=== PATIENT | male | born 1950 | race African-American/Black ===

== ENCOUNTER 2017-04-20 13:29 | Emergency (ER) | payer OTHER ==
[~2017-04-20] VITALS: Ht 182.9 cm; Wt 115.7 kg
[2017-04-20] MEDS ORDERED: SYNTHROID137 MCG ORAL (13:39)
[2017-04-20] MEDS ORDERED: Meclizine 25mg tab ORAL PRN (13:45)
--- NOTE | 2017-04-20 13:53 | Emergency Room Report ---
History of Present Illness General Chief Complaint: Dizziness Source: Patient Present Illness HPI The patient is a 66-year-old male presenting for feeling of dizziness. He states that yesterday, he felt that the room was spinning around him. This appeared to get worse with movement. The sensation then self resolved a few hours later. He denies any of these symptoms at this time. 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 He states that this has not changed. He denies other symptoms including nausea, vomiting, fever, chills, blurred vision , chest pain, shortness of breath Allergies: Coded Allergies: No Known Allergies (Unverified , 04/20/17) Patient History Past Medical History: see triage record Pertinent Family History: none Reviewed Nursing Documentation: PMH: Agreed, PSxH: Agreed Nursing Documentation-PMH Hx Hypertension: Yes Review of Systems All Other Systems: negative except mentioned in HPI Physical Exam Vital Signs Date Time Temp Pulse Resp B/P (MAP) Pulse Ox O2 Delivery O2 Flow Rate FiO2 04/20/17 13:34 98.2 81 19 149/94 97 Room Air Sp02 EP Interpretation: reviewed, normal General Appearance: no apparent distress, alert, GCS 15, non-toxic Head: normocephalic, atraumatic Eyes: bilateral eye PERRL, bilateral eye EOMI, bilateral eye other - bilat nystagmus ENT: hearing grossly normal, normal pharynx, no angioedema, normal voice, TMs + canals normal, uvula midline Neck: full range of motion, no bony tend, supple/symm/no masses Respiratory: chest non-tender, lungs clear, normal breath sounds, speaking full sentences Cardiovascular #1: regular rate, rhythm, no edema Genitourinary: normal inspection, no CVA tenderness Musculoskeletal: back normal, gait/station normal, normal range of motion, non- tender Neurologic: alert, oriented x3, responsive, sensory intact, speech normal, facial droop - R sided s/p Cardozo Palsy, other - R sided facial weakness Psychiatric: judgement/insight normal, memory normal, mood/affect normal, no suicidal/homicidal ideation Skin: normal color, no rash, warm/dry, well hydrated Lymphatic: no adenopathy Medical Decision Making PA Attestation Dr. Shelton is my supervising physician. Patient management was discussed with my supervising physician Diagnostic Impression: Primary Impression: Vertigo ER Course The patient is a 66-year-old male presenting for feeling of dizziness Differential diagnoses considered but not limited to: BPV, labyrinthitis, Mni re's disease, otitis media, CVA, ACS, among others Physical exam: Afebrile. No apparent distress Head is normocephalic atraumatic. There is right-sided facial droop and weakness. Unable to furrow brow on right side. Bilat nystagmus Labs: No leukocytosis. No anemia. CMP is unremarkable Urinalysis unremarkable UDS positive for marijuana only CTA of head shows Nonvisualization of the proximal right posterior inferior cerebellar artery, with visualization of distal branches. Differential possibilities include congenital agenesis, versus acquired occlusion The patient was placed for admission at this time. MRA ordered which shows no occlusion and no acute findings. After this result, admission was canceled and the patient will be discharged home. He states he has an appointment to see his primary doctor in the next 2 days. Is given a prescription for meclizine. He is given precautions to return to emergency department if symptoms return or any new symptoms presents. Laboratory Tests Test 04/20/17 14:16 04/20/17 15:08 White Blood Count 6.8 K/UL (4.8-10.8) Red Blood Count 4.50 M/UL (4.70-6.10) L Hemoglobin 16.0 G/DL (14.2-18.0) Hematocrit 47.2 % (42.0-52.0) Mean Corpuscular Volume 105 FL (80-99) H Mean Corpuscular Hemoglobin 35.6 PG (27.0-31.0) H Mean Corpuscular Hemoglobin Concent 33.9 G/DL (32.0-36.0) Red Cell Distribution Width 10.4 % (11.6-14.8) L Platelet Count 269 K/UL (150-450) Mean Platelet Volume 6.7 FL (6.5-10.1) Neutrophils (%) (Auto) 56.0 % (45.0-75.0) Lymphocytes (%) (Auto) 33.0 % (20.0-45.0) Monocytes (%) (Auto) 6.7 % (1.0-10.0) Eosinophils (%) (Auto) 3.4 % (0.0-3.0) H Basophils (%) (Auto) 1.0 % (0.0-2.0) Sodium Level 137 mEQ/L (135-145) Potassium Level 4.3 mEQ/L (3.4-4.9) Chloride Level 99 mEQ/L (98-107) Carbon Dioxide Level 26 mEQ/L (20-30) Anion Gap 12 (5-15) Blood Urea Nitrogen 12 mg/dL (7-23) Creatinine 1.2 mg/dL (0.7-1.2) Estimate Glomerular Filtration Rate > 60 mL/min (>60) Glucose Level 98 mg/dL (74-106) Calcium Level 9.1 mg/dL (8.6-10.2) Total Bilirubin 0.7 mg/dL (0.0-1.2) Aspartate Amino Transferase (AST) 22 U/L (5-40) Alanine Aminotransferase (ALT) 16 U/L (3-41) Alkaline Phosphatase 55 U/L (40-129) Creatine Kinase MB 1.6 ng/mL (< 6.7) Troponin I < 0.30 ng/mL (<=0.30) Total Protein 6.9 g/dL (6.6-8.7) Albumin 4.2 g/dL (3.5-5.2) Globulin 2.7 g/dL Albumin/Globulin Ratio 1.5 (1.0-2.7) Acetaminophen Level < 10 ug/mL (10-30) L Serum Alcohol < 10 mg/dL Urine Color Yellow Urine Appearance Clear Urine pH 8 (4.5-8.0) Urine Specific [place] 1.010 (1.005-1.035) Urine Protein Negative (NEGATIVE) Urine Glucose (UA) Negative (NEGATIVE) Urine Ketones Negative (NEGATIVE) Urine Occult Blood Negative (NEGATIVE) Urine Nitrite Negative (NEGATIVE) Urine Bilirubin Negative (NEGATIVE) Urine Urobilinogen 1 MG/DL (0.0-1.0) H Urine Leukocyte Esterase 1+ (NEGATIVE) H Urine RBC 0-2 /HPF (0 - 0) H Urine WBC 0-2 /HPF (0 - 0) Urine Squamous Epithelial Cells Few /LPF (NONE/OCC) Urine Bacteria Few /HPF (NONE) Urine Opiates Screen Negative (NEGATIVE) Urine Barbiturates Screen Negative (NEGATIVE) Phencyclidine (PCP) Screen Negative (NEGATIVE) Urine Amphetamines Screen Negative (NEGATIVE) Urine Benzodiazepines Screen Negative (NEGATIVE) Urine Cocaine Screen Negative (NEGATIVE) Urine Marijuana (THC) Screen Positive (NEGATIVE) H Lab Results Impression Unremarkable EKG Diagnostic Results EP Interpretation: NSR. No acute changes Rate: normal - 77 Rhythm: NSR ST Segments: no acute changes ASA given to the pt in ED: No PA Scribe Text EKG was reviewed and read with my supervising physician. No acute ST segment changes are seen. Normal rate and rhythm. No acute changes. CT/MRI/US Diagnostic Results CT/MRI/US Diagnostic Results #1: Imaging Test Ordered: CTA head Impression Nonvisualization of the proximal right posterior inferior cerebellar artery, with visualization of distal branches. Differential possibilities include congenital agenesis, versus acquired occlusion CT/MRI/US Diagnostic Results #2: Imaging Test Ordered: MRA Head Impression Unremarkable Last Vital Signs Date Time Temp Pulse Resp B/P (MAP) Pulse Ox O2 Delivery O2 Flow Rate FiO2 04/20/17 13:34 98.2 81 19 149/94 97 Room Air Status: improved Disposition: HOME, SELF-CARE Condition: Stable Scripts Meclizine Hcl* (VERTICALM*) 25 Mg Tablet 25 MG ORAL THREE TIMES A DAY, #30 TAB Prov: KEI FERNANDEZ 04/20/17 KEI FERNANDEZ Apr 20, 2017 13:53
[2017-04-20] MEDS ORDERED: LISINOPRIL20 MG ORAL (14:02)
[2017-04-20] MEDS ORDERED: SYNTHROID150 MCG ORAL (14:02)
[2017-04-20] MEDS ORDERED: Tubing IV Cassette IV ONE (14:05)
[2017-04-20 14:30] VITALS: BP 127/88
[2017-04-20 14:38] LABS: EOSINOPHILS % (AUTO) 3.4 % (0.0-3.0); MEAN CORPUSCULAR HEMOGLOBIN 35.6 PG (27.0-31.0); MEAN CORPUSCULAR HGB CONC 33.9 G/DL (32.0-36.0); MEAN CORPUSCULAR VOLUME 105 FL (80-99); MEAN PLATELET VOLUME 6.7 FL (6.5-10.1); MONOCYTES % (AUTO) 6.7 % (1.0-10.0); PLATELET COUNT 269 K/UL (150-450); RED CELL DISTRIBUTION WIDTH 10.4 % (11.6-14.8); WHITE BLOOD COUNT 6.8 K/UL (4.8-10.8)
[2017-04-20 14:40] LABS: TROPONIN I < 0.30 ng/mL (<=0.30)
[2017-04-20 15:00] LABS: ACETAMINOPHEN < 10 ug/mL (10-30); ALANINE AMINOTRANSFERASE 16 U/L (3-41); ALBUMIN/GLOBULIN RATIO 1.5 (1.0-2.7); ALCOHOL < 10 mg/dL; ANION GAP 12 (5-15); ASPARTATE AMINO TRANSFERASE 22 U/L (5-40); CALCIUM 9.1 mg/dL (8.6-10.2); CARBON DIOXIDE 26 mEQ/L (20-30); CHLORIDE 99 mEQ/L (98-107); CREATININE 1.2 mg/dL (0.7-1.2); GLOMERULAR FILTRATION RATE > 60 mL/min (>60); HEMOLYSIS 13; POTASSIUM 4.3 mEQ/L (3.4-4.9); SODIUM 137 mEQ/L (135-145); TOTAL PROTEIN 6.9 g/dL (6.6-8.7)
[2017-04-20 15:10] LABS: CKMB 1.6 ng/mL (< 6.7)
[2017-04-20 15:20] LABS: APPEARANCE,URINE CLEAR; KETONES,URINE NEGATIVE (NEGATIVE); LEUKOCYTE ESTERASE ,URINE 1+ (NEGATIVE); NITRITE,URINE NEGATIVE (NEGATIVE); PH,URINE 8 (4.5-8.0); PROTEIN,URINE NEGATIVE (NEGATIVE); UROBILINOGEN,URINE 1 MG/DL (0.0-1.0)
[2017-04-20 15:28] LABS: BACTERIA,URINE FEW /HPF; RBC,URINE 0-2 /HPF (0 - 0); SQUAMOUS EPITHELIAL CELL,UR FEW /LPF (NONE/OCC); WBC,URINE 0-2 /HPF (0 - 0)
--- NOTE | 2017-04-20 16:12 | Diagnostic Imaging Report ---
Indication: WEAK Technique: Precontrast acquisitions obtained through the brain. IV administration nonionic contrast. Arterial and delayed phase spiral acquisitions obtained through the brain Multiplanar and 3-D reconstructions were generated. Total dose length product 4041 mGycm. CTDIvol(s) 70, 16, 115, 54, 54 mGy. Radiation dose was minimized using automated exposure control Comparison: None Findings: Precontrast images demonstrate no evidence of acute hemorrhage or edema. There is mild age-related enlargement of ventricles and extra-axial CSF spaces. Normal flores-white differentiation. The calvarium is intact. The sinuses demonstrate minimal mucosal thickening of the ethmoid sinuses. The mastoids are clear. Angiographic images demonstrate patent codominant distal vertebral arteries. The distal right JOCELYN branches are patent and fill with, although proximal right PICA branches are not identified. The left PICA fills in the normal fashion. Patent basilar artery. Patent bilateral superior cerebellar arteries. Patent and nonstenotic bilateral P1 segments and proximal branches. Small but patent bilateral posterior communicating artery branches. There is slight dilatation of the origin of the left posterior communicating artery. This measures approximately 2.5 mm in diameter, is conical, and the posterior communicating artery originates off of the apex. Patent distal internal carotid arteries bilaterally. Patent bilateral A1 segments and proximal branches. There is probably a patent anterior communicating artery. Patent bilateral M1 segments and proximal branches. No vascular malformations are demonstrated. Unremarkable veins venous sinuses. No evidence of aneurysm other than the posterior communicating artery anomaly. Delayed phase images demonstrate no evidence of unusual contrast enhancement. Impression: Nonvisualization of the proximal right posterior inferior cerebellar artery, with visualization of distal branches. Differential possibilities include congenital agenesis, versus acquired occlusion No other findings to suggest intracranial cerebrovascular insufficiency demonstrated Mild dilatation of the left posterior commuting artery origin. Infundibular origin versus small aneurysm. The measured dimension (2.5 mm) is slightly greater than the upper limits of normal (2 mm) of an infundibular origin, but the other features are characteristic of infundibular origin [place] anatomy, as described Chronic and age-related changes, as described Negative for acute intracranial bleed, mass effect, or contrast enhancing lesion Minimal sinus disease Findings discussed by phone with Dr. Shelton in the emergency room at the time of interpretation The CT scanner at [facility] is accredited by the [employer] and the scans are performed using protocols designed to limit radiation exposure to as low as reasonably achievable to attain images of sufficient resolution adequate for diagnostic evaluation.
[2017-04-20 16:22] VITALS: BP 133/80
[2017-04-20] MEDS ORDERED: VERTICALM25 MG ORAL (18:06)
[2017-04-20 18:30] VITALS: BP 144/70
--- NOTE | 2017-04-21 11:09 | Diagnostic Imaging Report ---
Indication: Dizziness and weakness. Technique: 3-D [id number] of the brain Comparison: None Findings: No significant stenosis, vascular malformation, or aneurysm is identified. Flow-related enhancement of the major intracranial arteries demonstrated including the anterior, middle, and posterior cerebral arteries.Anterior communicating artery is demonstrated. Posterior communicating arteries are not seen on this examination although by CTA both posterior communicating arteries were demonstrated. The [id number] does not include a significant portion of the distal vertebral arteries. Cannot determine whether the posterior inferior cerebellar arteries are present are not. There are not visualized on this exam. Impression: Negative MRA of the brain Note: In general, CTA is a better examination than MRA with better resolution. Please refer to the CTA report for more information.
--- NOTE | 2017-04-21 17:58 | Cardiology Report ---
APPROVED REPORT EKG Measurement Heart [id number] Normal sinus rhythm Incomplete right bundle branch block Borderline ECG
== END 2017-04-20 18:30 | disposition home or self-care (01) ==
LOC: EMR 13:59
DX: R42 Dizziness and giddiness (principal); G51.0 Bell's palsy; I10 Essential (primary) hypertension; J32.9 Chronic sinusitis, unspecified
CPT/HCPCS: 36415; 70496; 70544; 80053; 80300; 81003; 82553; 84484; 85025; 93005; 99284; G0480; Q9967; 80329

== ENCOUNTER 2017-04-22 21:10 | Emergency (ER) | payer OTHER ==
[~2017-04-22] VITALS: Ht 182.9 cm; Wt 113.4 kg
[~2017-04-22 21:10] MED LIST: LISINOPRIL20 MG ORAL; SYNTHROID137 MCG ORAL; SYNTHROID150 MCG ORAL; VERTICALM25 MG ORAL
--- NOTE | 2017-04-22 21:29 | Emergency Room Report ---
History of Present Illness General Chief Complaint: To Be Triaged Source: Patient Present Illness HPI Patient presents with headache. It's left-sided. He was seen in April 20 similar complaints although it was described as vertigo at that time. An MRA and also a CTA of the brain were done. He was discharged with meclizine. The "headache" has persisted. He denies any fevers. He denies aura, NV, dysuria, pain in his temples, change in vision. He is worried and wants to make sure it is nothing serious. The patient is a history of Cardozo's palsy on the right-hand side 20 years ago. Risk factor = HTN which has been controlled. Here is the MRA: Findings: No significant stenosis, vascular malformation, or aneurysm is identified. Flow-related enhancement of the major intracranial arteries demonstrated including the anterior, middle, and posterior cerebral arteries.Anterior communicating artery is demonstrated. Posterior communicating arteries are not seen on this examination although by CTA both posterior communicating arteries were demonstrated. The himje-tb-htyc does not include a significant portion of the distal vertebral arteries. Cannot determine whether the posterior inferior cerebellar arteries are present are not. There are not visualized on this exam. Impression: Negative MRA of the brain Allergies: Coded Allergies: No Known Allergies (Unverified , 04/20/17) Patient History Past Medical History: see triage record Social History: Reports: smoking, drug use - thc Social History Narrative with girlfriend Reviewed Nursing Documentation: PMH: Agreed, PSxH: Agreed Nursing Documentation-PMH Hx Hypertension: Yes Review of Systems All Other Systems: negative except mentioned in HPI Physical Exam Vital Signs Date Time Temp Pulse Resp B/P (MAP) Pulse Ox O2 Delivery O2 Flow Rate FiO2 04/22/17 21:47 98.1 70 16 148/83 97 Room Air Sp02 EP Interpretation: reviewed, normal General Appearance: well appearing, no apparent distress, GCS 15 Head: normocephalic, atraumatic Eyes: right eye other - lid laxity, bilateral eye normal inspection, bilateral eye PERRL ENT: moist mucus membranes Neck: full range of motion, supple Respiratory: lungs clear, normal breath sounds Cardiovascular #1: regular rate, rhythm Cardiovascular #2: 2+ radial (R) Gastrointestinal: normal inspection, normal bowel sounds, non tender, no mass, non-distended Musculoskeletal: back normal, gait/station normal, normal range of motion Neurologic: alert, oriented x3, commodity broker III-XII nml as tested - with Cardozo's palsy R , motor strength/tone normal, DTRs symmetric, sensory intact, cerebellar normal , normal gait, speech normal Psychiatric: mood/affect normal Skin: normal inspection, warm/dry Medical Decision Making Diagnostic Impression: Primary Impression: Pressure in head Additional Impression: History of Cardozo's palsy ER Course Patient with head "pressure" post evaluation 04/20 with negative MRA. DDx: migraine, tension, anxiety, vasculitis amongst others. MRA is reassuring. Will repeat labs including ESR and check EKG. Will treat for pain with reglan, toradol and benadryl. Consider stronger analgesia if needed. Labs unremarkable with normal sed rate. MRA reviewed. Patient sleeping before and after medication. Patient stable for outpatient observation and treatment. Laboratory Tests Test 04/22/17 23:03 04/23/17 00:10 Urine Color Yellow Urine Appearance Clear Urine pH 6 (4.5-8.0) Urine Specific [place] 1.010 (1.005-1.035) Urine Protein Negative (NEGATIVE) Urine Glucose (UA) Negative (NEGATIVE) Urine Ketones Negative (NEGATIVE) Urine Occult Blood Negative (NEGATIVE) Urine Nitrite Negative (NEGATIVE) Urine Bilirubin Negative (NEGATIVE) Urine Urobilinogen Normal MG/DL (0.0-1.0) Urine Leukocyte Esterase Negative (NEGATIVE) White Blood Count 8.9 K/UL (4.8-10.8) Red Blood Count 4.14 M/UL (4.70-6.10) L Hemoglobin 15.3 G/DL (14.2-18.0) Hematocrit 43.1 % (42.0-52.0) Mean Corpuscular Volume 104 FL (80-99) H Mean Corpuscular Hemoglobin 37.0 PG (27.0-31.0) H Mean Corpuscular Hemoglobin Concent 35.6 G/DL (32.0-36.0) Red Cell Distribution Width 10.5 % (11.6-14.8) L Platelet Count 249 K/UL (150-450) Mean Platelet Volume 6.6 FL (6.5-10.1) Neutrophils (%) (Auto) 50.3 % (45.0-75.0) Lymphocytes (%) (Auto) 34.5 % (20.0-45.0) Monocytes (%) (Auto) 10.7 % (1.0-10.0) H Eosinophils (%) (Auto) 3.5 % (0.0-3.0) H Basophils (%) (Auto) 1.1 % (0.0-2.0) Erythrocyte Sedimentation Rate 4 MM/HR (0-20) Prothrombin Time 10.0 SEC (9.30-11.50) Prothrombin Time INR 1.0 (0.9-1.1) PTT 27 SEC (23-33) Sodium Level 138 mEQ/L (135-145) Potassium Level 4.0 mEQ/L (3.4-4.9) Chloride Level 100 mEQ/L (98-107) Carbon Dioxide Level 25 mEQ/L (20-30) Anion Gap 13 (5-15) Blood Urea Nitrogen 12 mg/dL (7-23) Creatinine 1.2 mg/dL (0.7-1.2) Estimate Glomerular Filtration Rate > 60 mL/min (>60) Glucose Level 88 mg/dL (74-106) Calcium Level 8.9 mg/dL (8.6-10.2) Total Bilirubin 0.7 mg/dL (0.0-1.2) Aspartate Amino Transferase (AST) 24 U/L (5-40) Alanine Aminotransferase (ALT) 18 U/L (3-41) Alkaline Phosphatase 51 U/L (40-129) Total Creatine Kinase 142 U/L (38-174) Troponin I < 0.30 ng/mL (<=0.30) Pro-B-Type Natriuretic Peptide 25 pg/mL (0-125) Total Protein 6.6 g/dL (6.6-8.7) Albumin 4.0 g/dL (3.5-5.2) Globulin 2.6 g/dL Albumin/Globulin Ratio 1.5 (1.0-2.7) EKG Diagnostic Results Rate: normal Rhythm: NSR ST Segments: no acute changes Rhythm Strip Diag. Results EP Interpretation: yes Rhythm: NSR, no PVC's, no ectopy Last Vital Signs Date Time Temp Pulse Resp B/P (MAP) Pulse Ox O2 Delivery O2 Flow Rate FiO2 04/23/17 02:20 98.1 68 17 144/80 99 Room Air Status: improved Disposition: HOME, SELF-CARE Condition: Improved Scripts Ibuprofen* (MOTRIN*) 600 Mg Tablet 600 MG ORAL Q6H Y for For Pain, #20 TAB Prov: Kristopher Andrews M.D. 04/23/17 Kristopher Andrews M.D. Apr 22, 2017 21:29
[2017-04-22] MEDS ORDERED: Metoclopramide 10mg/2ml Inj IVP ONE (21:30)
[2017-04-22] MEDS ORDERED: DiphenhydrAMINE 50mg/ml Inj IVP ONE (21:30)
[2017-04-22] MEDS ORDERED: Ketorolac 30mg Inj IV ONE (21:30)
[2017-04-22 21:50] VITALS: BP 148/83
[2017-04-22 23:32] LABS: APPEARANCE,URINE CLEAR; KETONES,URINE NEGATIVE (NEGATIVE); LEUKOCYTE ESTERASE ,URINE NEGATIVE (NEGATIVE); NITRITE,URINE NEGATIVE (NEGATIVE); PH,URINE 6 (4.5-8.0); PROTEIN,URINE NEGATIVE (NEGATIVE); UROBILINOGEN,URINE NORMAL MG/DL (0.0-1.0)
[2017-04-22 23:50] VITALS: BP 144/81
[2017-04-23 00:41] LABS: BASOPHILS % (AUTO) 1.1 % (0.0-2.0); EOSINOPHILS % (AUTO) 3.5 % (0.0-3.0); LYMPHOCYTES % (AUTO) 34.5 % (20.0-45.0); MEAN CORPUSCULAR HGB CONC 35.6 G/DL (32.0-36.0); MEAN CORPUSCULAR VOLUME 104 FL (80-99); MEAN PLATELET VOLUME 6.6 FL (6.5-10.1); MONOCYTES % (AUTO) 10.7 % (1.0-10.0); NEUTROPHILS % (AUTO) 50.3 % (45.0-75.0); PLATELET COUNT 249 K/UL (150-450); RED BLOOD COUNT 4.14 M/UL (4.70-6.10); RED CELL DISTRIBUTION WIDTH 10.5 % (11.6-14.8); WHITE BLOOD COUNT 8.9 K/UL (4.8-10.8)
[2017-04-23 00:50] LABS: TROPONIN I < 0.30 ng/mL (<=0.30)
[2017-04-23 00:54] LABS: ALANINE AMINOTRANSFERASE 18 U/L (3-41); ALBUMIN/GLOBULIN RATIO 1.5 (1.0-2.7); ANION GAP 13 (5-15); ASPARTATE AMINO TRANSFERASE 24 U/L (5-40); CALCIUM 8.9 mg/dL (8.6-10.2); CARBON DIOXIDE 25 mEQ/L (20-30); CHLORIDE 100 mEQ/L (98-107); CREATININE 1.2 mg/dL (0.7-1.2); GLOMERULAR FILTRATION RATE > 60 mL/min (>60); HEMOLYSIS 67; SODIUM 138 mEQ/L (135-145); TOTAL PROTEIN 6.6 g/dL (6.6-8.7)
[2017-04-23 01:50] VITALS: BP 146/83
[2017-04-23 01:53] LABS: ERYTHROCYTE SEDIMENTATION RATE 4 MM/HR (0-20)
[2017-04-23] MEDS ORDERED: IBUPROFEN600 MG ORAL (02:07)
[2017-04-23 02:20] VITALS: BP 144/80
--- NOTE | 2017-04-26 16:02 | Cardiology Report ---
APPROVED REPORT EKG Measurement Heart [id number] Normal sinus rhythm Incomplete right bundle branch block Borderline ECG
== END 2017-04-23 02:20 | disposition home or self-care (01) ==
LOC: EMR 21:25
DX: R51 Headache (principal); I10 Essential (primary) hypertension; Z86.69 Personal history of other diseases of the nervous system and sense organs; F17.200 Nicotine dependence, unspecified, uncomplicated; F12.90 Cannabis use, unspecified, uncomplicated
CPT/HCPCS: 36415; 80053; 81003; 82550; 83880; 84484; 85025; 85610; 85651; 85730; 93005; 96374; 96375; 99284; J1200; J1885; J2765